=== PATIENT | male | born 1965 | race African-American/Black ===

== ENCOUNTER 2023-12-02 02:58 | Inpatient (IN) | payer MEDICAID, OTHER ==
[~2023-12-02] VITALS: Ht 182.9 cm; Wt 107.3 kg
[2023-12-02 03:35] VITALS: PULSE 88; RESP 17; O2SAT 95
[2023-12-02] MEDS: METOCLOPRAMIDE HCL 5MG/ml INJ 2ml VIAL IV ONE (04:00)
[2023-12-02] MEDS: MORPHINE SULFATE 4 MG/ML SYR/VIAL IV ONE (04:00)
[2023-12-02] MEDS ORDERED: NITROGLYCERIN 0.4 MG SL TAB SL PRN ×2 (09:30→10:15)
[2023-12-02] MEDS ORDERED: ONDANSETRON HCL 4 MG/2 ML VIAL IV PRN (09:30)
[2023-12-02] MEDS ORDERED: MORPHINE SULFATE 4 MG/ML SYR/VIAL IV PRN (09:30)
[2023-12-02 09:47] LABS: INR 1.1 (0.9-1.15); Prothrombin Time 11.6 sec (9.3-11.8)
[2023-12-02] MEDS: ASPirin 81 mg TAB PO SCH (10:23)
[2023-12-02] MEDS: DOCUSATE SOD 100 MG CAP PO SCH (10:23)
[2023-12-02] MEDS: METOPROLOL TARTRATE 25 MG TAB PO SCH (10:24)
[2023-12-02 12:40] VITALS: BP 148/70; PULSE 70; RESP 22; TEMP 98.2; O2SAT 96
[2023-12-02 13:02] VITALS: BP 148/70; PULSE 70; RESP 20; TEMP 98.2; O2SAT 96
[2023-12-02] MEDS ORDERED: HYDR12.59 PO (13:18)
[2023-12-02 17:00] VITALS: BP 150/78; PULSE 77; RESP 20; TEMP 98.3; O2SAT 95
[2023-12-02 20:00] VITALS: PULSE 76; PULSE 84; RESP 20; O2SAT 98
[2023-12-02 21:00] VITALS: BP 143/60; PULSE 76; RESP 20; TEMP 98.6; O2SAT 98
[2023-12-02] MEDS: ENOXAPARIN SOD 120 MG/0.8 ML SYRINGE SC SCH (21:47)
[2023-12-02] MEDS: ATORVASTATIN 20 MG TAB PO SCH (21:49)
[2023-12-03 01:00] VITALS: BP 132/66; PULSE 75; RESP 18; TEMP 98.4; O2SAT 92
[2023-12-03 05:00] VITALS: BP 136/78; PULSE 63; RESP 20; TEMP 98; O2SAT 94
[2023-12-03 05:57] LABS: Alanine Aminotransferase 37 U/L (7-40); Albumin 3.7 g/dL (3.2-4.8); Alkaline Phosphatase 88 U/L (46-116); Anion Gap 2 (5-15); Aspartate Aminotransferase 29 U/L (13-40); BUN/Creatinine Ratio 11.5 (10.0-20.0); Blood Urea Nitrogen 16 mg/dL (9-23); Calcium 9.2 mg/dL (8.7-10.4); Carbon Dioxide 31 mmol/L (20-30); Chloride 104 mmol/L (98-107); Glucose 111 mg/dL (74-106); LDL Cholesterol 104 mg/dL (< 100); Potassium 3.4 mmol/L (3.5-5.1); Sodium 137 mmol/L (136-145); Triglycerides 150 mg/dL (< 150)
[2023-12-03 05:58] LABS: Bilirubin, Total 1.2 mg/dL (0.2-1.0); Cholesterol 159 mg/dL (< 200); HDL Cholesterol 33 mg/dL (40-59); Total Protein 6.9 g/dL (5.7-8.2)
[2023-12-03 07:17] LABS: Basophils # (auto) 0.1 10 ^3/uL (0-0.2); Basophils % (auto) 0.4 % (0.0-2.0); Eosinophils # (auto) 0.3 10 ^3/uL (0-0.8); Eosinophils % (auto) 2.1 % (0.0-7.0); Hematocrit 44.4 % (41.0-53.0); Hemoglobin 14.8 g/dL (13.5-17.5); Lymphocytes # (auto) 4.7 10 ^3/uL (0.4-5.4); Lymphocytes % (auto) 36.8 % (10.0-50.0); Mean Corpuscular Hemoglobin 27.7 pg (28.0-32.0); Mean Corpuscular Hgb Conc. 33.3 g/dL (32.0-36.0); Mean Corpuscular Volume 83.1 fL (80.0-100.0); Monocytes # (auto) 1.6 10 ^3/uL (0-1.3); Monocytes % (auto) 12.8 % (0.0-12.0); Neutrophils % (auto) 47.9 % (37.0-80.0); Platelet Count (auto) 307 10^3/uL (140-450); Red Blood Cells 5.34 10^6/uL (4.5-5.90); Red Cell Distribution Width 13.5 % (11.8-14.3); White Blood Cell 12.6 10^3/uL (4.4-10.8)
[2023-12-03 08:00] VITALS: PULSE 75
[2023-12-03 09:00] VITALS: BP 160/84; PULSE 72; RESP 14; TEMP 98.2; O2SAT 96
[2023-12-03 13:00] VITALS: BP 140/76; PULSE 59; RESP 16; TEMP 98.1; O2SAT 98
[2023-12-03] MEDS ORDERED: MET25T PO (13:36)
[2023-12-03] MEDS ORDERED: ASPI-325 PO (13:36)
[2023-12-03] MEDS ORDERED: ATOR20TA50 PO (13:36)
[2023-12-03] MEDS: POTASSIUM EFFERVESENT TAB 25 MEQ PO ONE (13:45)
[2023-12-03 14:29] VITALS: BP 140/76; PULSE 59; RESP 16; TEMP 36.7; O2SAT 98
== END 2023-12-03 15:15 | disposition home or self-care (01) | DRG 54 ==
LOC: ER 02:58 → TELE 10:15 → TELE-E-ADS 12:40
PROVIDERS: ADMIT Nurse Practitioner Family; ATTEND Nurse Practitioner Family
DX: G43.909 Migraine, unspecified, not intractable, without status migrainosus (principal); I21.A1 Myocardial infarction type 2; I16.0 Hypertensive urgency; Z95.1 Presence of aortocoronary bypass graft; I10 Essential (primary) hypertension; I25.10 Atherosclerotic heart disease of native coronary artery without angina pectoris; Z79.899 Other long term (current) drug therapy; Z68.32 Body mass index [BMI] 32.0-32.9, adult
CPT/HCPCS: 36415; 71045; 80053; 80061; 83735; 84484; 85025; 85379; 85610; 93005; 93306; 93886; 96374; 96375; 99291; G0378